=== PATIENT | female | born 1945 | race Caucasian/White ===

== ENCOUNTER → 2019-01-09 | Outpatient (CLI) | payer OTHER, MEDICARE | END | disposition home or self-care (01) | LOC: RAH 13:54 | PROVIDERS: ATTEND Internal Medicine | DX: Z12.31 Encounter for screening mammogram for malignant neoplasm of breast (principal) | CPT/HCPCS: 77067 ==

== ENCOUNTER 2019-05-19 19:32 | Emergency (ER) | payer OTHER, MEDICARE ==
[2019-05-19] MEDS ORDERED: SODIUM CHLORIDE 0.9% 1000ML 1,000 ML IV ONE (19:57)
[2019-05-19] MEDS ORDERED: IPRATROPIUM/ALBUTEROL SULFATE 3 ML SOLUTION IH ONE ×2 (20:03→21:37)
[2019-05-19 20:20] LABS: BASOPHILS % (AUTO) 1.3 % (0.0-5.0); EOSINOPHILS % (AUTO) 1.6 % (0.0-8.0); HEMATOCRIT 39.3 % (36-48); LYMPHOCYTES % (AUTO) 39.4 % (21.0-51.0); MEAN CORPUSCULAR HEMOGLOBIN 30.5 pg (27.0-33.0); MEAN CORPUSCULAR HGB CONC 33.5 g/dL (32.0-36.0); MEAN CORPUSCULAR VOLUME 91.1 fL (79-99); MONOCYTES % (AUTO) 13.5 % (3.0-13.0); NEUTROPHILS % (AUTO) 44.2 % (40.0-77.0); NUCLEATED RED BLOOD CELLS 0.3 % (0.0-0.19); PLATELET COUNT (AUTO) 231 K/uL (130-400); RED BLOOD CELL COUNT(AUTO) 4.31 MIL/uL (4.00-5.50); RED CELL DISTRIBUTION WIDTH 15.2 % (11.0-15.5); WHITE BLOOD COUNT (AUTO) 4.5 K/uL (4.8-10.8)
[2019-05-19 20:29] LABS: CREATININE 1.2 mg/dL (0.5-1.5)
[2019-05-19 20:34] LABS: ALBUMIN 3.3 g/dL (3.5-5.0); BILIRUBIN,TOTAL 0.2 mg/dL (0.2-1.0); TOTAL PROTEIN, SERUM 7.5 g/dL (6.0-8.3)
[2019-05-19] MEDS ORDERED: IBUPROFEN 400 MG TABLET ONE (21:36)
[2019-05-19] MEDS ORDERED: IBUPROFEN 200 MG TAB ONE (21:36)
== END 2019-05-19 22:15 | disposition home or self-care (01) ==
LOC: EDH 19:32
DX: J44.9 Chronic obstructive pulmonary disease, unspecified (principal); Z90.710 Acquired absence of both cervix and uterus; Z90.49 Acquired absence of other specified parts of digestive tract; Z87.891 Personal history of nicotine dependence; Z88.0 Allergy status to penicillin; Z88.5 Allergy status to narcotic agent; Z88.6 Allergy status to analgesic agent
CPT/HCPCS: 36415; 71045; 80053; 82550; 84484; 85025; 87040 ×2; 87804 ×2; 93005; 94640 ×2; 99285; J7030

== ENCOUNTER 2019-05-29 16:54 | Observation (INO) | payer OTHER, MEDICARE ==
[2019-05-29] MEDS ORDERED: ENOXAPARIN SODIUM 40 MG/0.4 ML SYRINGE SQ ONE (18:13)
[2019-05-29] MEDS ORDERED: LEVOFLOXACIN 500 MG/D5W 100 ML 100 ML ONE (18:13)
[2019-05-29] MEDS ORDERED: METHYLPREDNISOLONE SOD SUCC 40MG/ML 1ML ONE (18:13)
[2019-05-29] MEDS ORDERED: PANTOPRAZOLE SODIUM 40 MG TABLET.DR PO ONE (18:13)
[2019-05-29 18:20] LABS: BASOPHILS % (AUTO) 0.8 % (0.0-5.0); EOSINOPHILS % (AUTO) 0.6 % (0.0-8.0); HEMATOCRIT 40.5 % (36-48); LYMPHOCYTES % (AUTO) 27.1 % (21.0-51.0); MEAN CORPUSCULAR HEMOGLOBIN 30.4 pg (27.0-33.0); MEAN CORPUSCULAR VOLUME 92.2 fL (79-99); MONOCYTES % (AUTO) 6.6 % (3.0-13.0); NEUTROPHILS % (AUTO) 64.9 % (40.0-77.0); PLATELET COUNT (AUTO) 273 K/uL (130-400); RED CELL DISTRIBUTION WIDTH 14.8 % (11.0-15.5); WHITE BLOOD COUNT (AUTO) 8.4 K/uL (4.8-10.8)
[2019-05-29 18:30] LABS: CREATININE 1.1 mg/dL (0.5-1.5); POTASSIUM 3.9 mmol/L (3.5-5.1)
[2019-05-29 18:35] LABS: ALBUMIN 3.4 g/dL (3.5-5.0); BILIRUBIN,TOTAL 0.4 mg/dL (0.2-1.0); TOTAL PROTEIN, SERUM 7.4 g/dL (6.0-8.3)
[2019-05-29 20:15] VITALS: BP_SYST 113; BP_SYST 141; BP_DIAS 74; BP_DIAS 75
--- NOTE | 2019-05-29 20:15 | NUR ---
Admission Assessment Received pt from ED with no family around per stretcher, routine admission assessment done, plan of care discuss, claimed that last had seen Dr. Olivarez & was given 5 days of Levaquin 500mg daily & stated nothing has change on how she feels reason she had to come in this time. Pt made aware that she is on observation status, this means 24-48 hours statu in the hospital. Pt also mention that she saw Dr. Korey Gan last of last month, did 6 minute walk test which pt claimed she passed O2 sat 96% on room air. Pt made aware pending to be seen by [facility] in AM. Re: vaccination pt declined Flu vaccination, current with her Pneumonia vaccination.
[2019-05-29] MEDS ORDERED: ADV250 IH (21:15)
[2019-05-29] MEDS ORDERED: PRAM1TAB7 PO (21:15)
[2019-05-29] MEDS ORDERED: ALBU2.5V2 IH (21:15)
[2019-05-29] MEDS ORDERED: GABA-531 PO (21:15)
[2019-05-29] MEDS ORDERED: TIOT4MIS5 IH (21:15)
[2019-05-29] MEDS ORDERED: PRED5TAB PO (21:15)
[2019-05-29] MEDS ORDERED: LEVO125T11 PO (21:15)
[2019-05-29] MEDS ORDERED: RANI150T7 PO (21:15)
[2019-05-29] MEDS ORDERED: OMEP40CA13 PO (21:15)
[2019-05-29] MEDS ORDERED: DIPH25TA20 PO (21:15)
[2019-05-29] MEDS ORDERED: IPRATROPIUM/ALBUTEROL SULFATE 3 ML SOLUTION IH ONE (21:35)
[2019-05-29] MEDS ORDERED: IPRATROPIUM 0.5 MG/2.5 ML INH IH PRN (21:45)
[2019-05-29] MEDS ORDERED: SODIUM CHLORIDE 0.9% 10 ML VIAL IVP PRN (21:45)
[2019-05-29] MEDS ORDERED: PHARMACY COMMUNICATION MISC SCH (21:45)
[2019-05-29] MEDS ORDERED: IPRATROPIUM/ALBUTEROL SULFATE 3 ML SOLUTION IH PRN (21:45)
[2019-05-29] MEDS: IPRATROPIUM/ALBUTEROL SULFATE 3 ML SOLUTION IH SCH (22:00)
[2019-05-29] MEDS: IPRATROPIUM 0.5 MG/2.5 ML INH IH SCH (22:00)
[2019-05-30] VITALS (7 sets, daily range): BP systolic 118–140; BP diastolic 52–71
[2019-05-30] MEDS: IPRATROPIUM/ALBUTEROL SULFATE 3 ML SOLUTION IH SCH ×6 (01:19→21:10)
[2019-05-30] MEDS: IPRATROPIUM 0.5 MG/2.5 ML INH IH SCH ×7 (01:20→21:20)
[2019-05-30] MEDS: METHYLPREDNISOLONE SOD SUCC 125MG/2ML VIAL IVP SCH ×2 (02:00→06:41)
[2019-05-30 05:24] LABS: HEMATOCRIT 39.1 % (36-48); MEAN CORPUSCULAR HEMOGLOBIN 30.1 pg (27.0-33.0); MEAN CORPUSCULAR VOLUME 91.3 fL (79-99); PLATELET COUNT (AUTO) 276 K/uL (130-400); RED BLOOD CELL COUNT(AUTO) 4.29 MIL/uL (4.00-5.50); RED CELL DISTRIBUTION WIDTH 14.6 % (11.0-15.5); WHITE BLOOD COUNT (AUTO) 5.2 K/uL (4.8-10.8)
[2019-05-30 05:35] LABS: ALBUMIN 3.1 g/dL (3.5-5.0); BILIRUBIN,TOTAL 0.2 mg/dL (0.2-1.0); CREATININE 1.2 mg/dL (0.5-1.5); POTASSIUM 4.9 mmol/L (3.5-5.1); TOTAL PROTEIN, SERUM 7.4 g/dL (6.0-8.3)
[2019-05-30] MEDS ORDERED: PANTOPRAZOLE SODIUM 40 MG TABLET.DR PO SCH (09:00)
[2019-05-30] MEDS: ENOXAPARIN SODIUM 40 MG/0.4 ML SYRINGE SQ SCH (10:58)
[2019-05-30] MEDS ORDERED: LEVOFLOXACIN 500 MG/D5W 100 ML 100 ML IV SCH (12:00)
--- NOTE | 2019-05-30 14:54 | NUR ---
D/C PLAN CM spoke to pt regarding d/c planning. Pt is ind. and lives alone. States daughter named Maribel is available to assist in care if needed. Pt has nebulizer at home. Plan to home. No needs verbalized or identified. CM to f/u. Addendum: 05/30/19 at 1455 by MONICA JOVEL CM Amended: Links added.
[2019-05-30] MEDS: DOXYCYCLINE 100MG+NS 250ML 250 ML IV SCH (17:07)
--- NOTE | 2019-05-30 18:16 | NUR ---
DR. EARLY IN TO SEE PT.WENT OVER HOME MEDS. OK FOR PT. TO TAKE HER OWN HOME MEDS AT HER USUAL HOME SCHEDULE. PLAN TO DC IN AM AND WILL LEAVE ORDERS TO DISCHARGE.
[2019-05-30] MEDS: METHYLPREDNISOLONE SOD SUCC 40MG/ML 1ML IVP SCH (22:06)
[2019-05-31] MEDS: DOXYCYCLINE 100MG+NS 250ML 250 ML IV SCH (01:00)
[2019-05-31] MEDS: IPRATROPIUM/ALBUTEROL SULFATE 3 ML SOLUTION IH SCH ×2 (01:01→06:47)
[2019-05-31] MEDS: IPRATROPIUM 0.5 MG/2.5 ML INH IH SCH (01:01)
[2019-05-31 03:43] VITALS: BP 119/64
--- NOTE | 2019-05-31 05:38 | NUR ---
Re: Tele monitoring Pt took off her tele monitoring at this time, claimed does not need it as she is ready to be discharge after breakfast. Central monitoring c/o Shalonda made aware.
[2019-05-31] MEDS: ENOXAPARIN SODIUM 40 MG/0.4 ML SYRINGE SQ SCH (07:53)
--- NOTE | 2019-05-31 07:54 | NUR ---
STATES DR. EARLY TOLD HER HE WAS STOPPING LOVENOX SO SHE IS REFUSING IT.
[2019-05-31] MEDS: METHYLPREDNISOLONE SOD SUCC 40MG/ML 1ML IVP SCH (08:00)
--- NOTE | 2019-05-31 08:11 | NUR ---
AM SHIFT ASSESSMENT. PREPARED FOR DISCHARGE THIS AM.
--- NOTE | 2019-05-31 09:06 | NUR ---
DISCHARGED NOW USING TEACH BACK, VERBALIZES UNDERSTANDING OF ALL INST. GIVEN. NO NEW RX. GIVEN AND WILL CALL OFFICE IN AM FOR APPT. SALINE LOCK AND TELE-MONITOR REMOVED.
== END 2019-05-31 09:15 | disposition home or self-care (01) ==
LOC: EDH 16:54 → INTOOBSV 16:55 → EDHIP 16:55 → 3DH 20:15
PROVIDERS: ADMIT Internal Medicine; ATTEND Internal Medicine
DX: J44.1 Chronic obstructive pulmonary disease with (acute) exacerbation (principal); J44.0 Chronic obstructive pulmonary disease with (acute) lower respiratory infection; J96.91 Respiratory failure, unspecified with hypoxia; J18.9 Pneumonia, unspecified organism; E03.9 Hypothyroidism, unspecified; K21.9 Gastro-esophageal reflux disease without esophagitis; T50.905A Adverse effect of unspecified drugs, medicaments and biological substances, initial encounter; Z87.891 Personal history of nicotine dependence; Z90.49 Acquired absence of other specified parts of digestive tract; Z90.710 Acquired absence of both cervix and uterus; Z79.899 Other long term (current) drug therapy; Z88.0 Allergy status to penicillin; Z88.1 Allergy status to other antibiotic agents; Z88.8 Allergy status to other drugs, medicaments and biological substances; X58.XXXA Exposure to other specified factors, initial encounter; Y92.89 Other specified places as the place of occurrence of the external cause
CPT/HCPCS: 36415 ×2; 71250; 80053 ×2; 85025; 85027; 94640 ×8; 94664; 96365; 96366; 96372; 96375; 96376 ×2; 99284; A4510; G0378 ×41; J1650 ×2; J1956; J2920 ×3; J2930 ×3; J3490

== ENCOUNTER 2020-03-21 11:13 | Emergency (ER) | payer MEDICARE ==
[~2020-03-21 11:13] MED LIST: ADV250 IH; ALBU2.5V2 IH; DIPH25TA20 PO; GABA-531 PO; LEVO125T11 PO; OMEP40CA13 PO; PRAM1TAB7 PO; PRED5TAB PO; RANI150T7 PO; TIOT4MIS5 IH
[2020-03-21 12:30] LABS: APPEARANCE,URINE Clear (CLEAR); BILIRUBIN,URINE Negative (NEGATIVE); COLOR,URINE Yellow (YELLOW); GLUCOSE, URINE (UA) Negative (NEGATIVE); KETONES,URINE Negative (NEGATIVE); LEUKOCYTE ESTERASE ,URINE Large (NEGATIVE); NITRATE,URINE Negative (NEGATIVE); OCCULT BLOOD,URINE Negative (NEGATIVE); PROTEIN,URINE Negative (NEGATIVE); UROBILINOGEN,URINE 0.2 mg/dL (0.2-1.0)
[2020-03-21 12:41] LABS: BACTERIA,URINE Moderate /HPF (None Seen); RBC,URINE 0-1 /HPF (0-1)
[2020-03-21 12:42] LABS: SQUAMOUS EPITHELIAL CELL,UR Few /HPF (0-2)
[2020-03-21] MEDS ORDERED: LIDOCAINE 5% TOPICAL PATCH TP ONE (15:14)
== END 2020-03-21 15:26 | disposition home or self-care (01) ==
LOC: EDH 11:13
DX: N39.0 Urinary tract infection, site not specified (principal); M16.12 Unilateral primary osteoarthritis, left hip; Z90.49 Acquired absence of other specified parts of digestive tract; Z90.710 Acquired absence of both cervix and uterus; Z87.891 Personal history of nicotine dependence; Z88.6 Allergy status to analgesic agent; Z88.8 Allergy status to other drugs, medicaments and biological substances; Z88.0 Allergy status to penicillin; Z88.3 Allergy status to other anti-infective agents; Z88.1 Allergy status to other antibiotic agents
CPT/HCPCS: 73700; 81001; 87077; 87088; 87186

== ENCOUNTER → 2023-05-09 | Outpatient (CLI) | payer OTHER, MEDICARE ==
[~2023-05-09] MED LIST changes: -OMEP40CA13 PO; +OMEP40CA21 PO
[2023-05-09 14:52] LABS: CREATININE 1.3 mg/dL (0.5-1.5)
== END | disposition home or self-care (01) ==
LOC: LAB 13:30
PROVIDERS: ATTEND Internal Medicine
DX: R10.9 Unspecified abdominal pain (principal)
CPT/HCPCS: 36415; 82565; 84520

== ENCOUNTER → 2023-05-20 | Outpatient (CLI) | payer OTHER, MEDICARE ==
[~2023-05-20] MED LIST changes: +IOHEXOL 350 MG/ML 100ML INFUS..BTL IV ONE
== END | disposition home or self-care (01) ==
LOC: RAH 08:07
PROVIDERS: ATTEND Internal Medicine
DX: K76.89 Other specified diseases of liver (principal); R10.9 Unspecified abdominal pain; K57.32 Diverticulitis of large intestine without perforation or abscess without bleeding
CPT/HCPCS: 74178; Q9967

== ENCOUNTER → 2023-06-01 | Outpatient (CLI) | payer OTHER, MEDICARE ==
[~2023-06-01] MED LIST changes: -IOHEXOL 350 MG/ML 100ML INFUS..BTL IV ONE
== END | disposition home or self-care (01) ==
LOC: SHCH 09:49
PROVIDERS: ATTEND Student in an Organized Health Care Education/Training Program
DX: R06.02 Shortness of breath (principal)
CPT/HCPCS: 93306

== ENCOUNTER → 2023-07-03 | Outpatient (CLI) | payer OTHER, MEDICARE ==
[2023-07-03 16:42] LABS: CHOLESTEROL 324 mg/dL (<200); HDL CHOLESTEROL 110 mg/dL (35-85); LDL DIRECT 157 mg/dL (0-99); T3 UPTAKE 24 % (38-49); TRIGLYCERIDES 181 mg/dL (30-200)
[2023-07-03 17:24] LABS: T4 (THYROXINE) < 0.5 ug/dL (4.7-13.3)
[2023-07-03 17:36] LABS: THYROID STIMULATING HORMONE 152.75 uIU/mL (0.36-3.74)
== END | disposition home or self-care (01) ==
LOC: LAB 14:52
PROVIDERS: ATTEND Student in an Organized Health Care Education/Training Program
DX: E03.9 Hypothyroidism, unspecified (principal)
CPT/HCPCS: 36415; 80061; 84436; 84443; 84479